=== PATIENT | male | born 1945 | race Two or more races ===

== ENCOUNTER → 2020-10-25 10:29 | Outpatient (BNVA) | payer OTHER, SELFPAY | PROVIDERS: PCP Internal Medicine; Visit Provider Internal Medicine | DX: I25.10 Atherosclerotic heart disease of native coronary artery without angina pectoris (principal); I10 Essential (primary) hypertension; E78.5 Hyperlipidemia, unspecified; Z95.1 Presence of aortocoronary bypass graft | CPT/HCPCS: 99212 ==

== ENCOUNTER → 2021-04-18 10:02 | Outpatient (BNVA) | payer OTHER, SELFPAY | PROVIDERS: PCP Internal Medicine; Referring Provider Internal Medicine; Visit Provider Internal Medicine | DX: I25.10 Atherosclerotic heart disease of native coronary artery without angina pectoris (principal); I10 Essential (primary) hypertension; E78.5 Hyperlipidemia, unspecified; Z95.1 Presence of aortocoronary bypass graft | CPT/HCPCS: 93005; 99212 ==

== ENCOUNTER 2021-04-20 10:27 | Outpatient (REF) | payer MEDICARE, SELFPAY ==
--- NOTE | ~2021-04-20 | XR_ITS ---
EXAMINATION: XR KNEE, RIGHT XR KNEE, LEFT CLINICAL INFORMATION: Pain in left knee COMPARISON: None TECHNIQUE: 4 views of the right knee and 4 views of the left knee FINDINGS: RIGHT: No acute visible fracture or dislocation. Mild multicompartment degenerative changes. Mild spurring of the tibial spines. Mild narrowing of the lateral patellofemoral compartment. Periarticular osteophytes of the inferior margin of the patella. Joint spaces are otherwise maintained. No large joint effusion. Soft tissues are unremarkable. Atherosclerotic calcifications noted. LEFT: No acute visible fracture or dislocation. Mild spurring of the tibial spines. Mild narrowing of the lateral patellofemoral compartment. Small articular osteophyte at the superior and inferior margin of the patella. Joint spaces and alignment are otherwise maintained. No large knee joint effusion. Soft tissues are unremarkable. XR/XR knee LT 3V IMPRESSION: 1. No acute visible fracture or dislocation. 2. Mild bilateral multicompartment degenerative changes.
--- NOTE | ~2021-04-20 | XR_ITS ---
EXAMINATION: XR ANKLE, LEFT CLINICAL INFORMATION: Pain in left ankle and joints COMPARISON: None TECHNIQUE: AP, lateral, and mortise views of the left ankle. FINDINGS: No acute visible fracture or dislocation. Status post orthopedic fixation of the ankle with distal fibular sideplate with screws, partially threaded screws through the medial malleolus and orthogonal screw towards the mid distal tibia. Surgical hardware is grossly intact. The ankle mortise is symmetric. Small plantar calcaneal heel spur. No large ankle joint effusion. Soft tissues are unremarkable. Atherosclerotic calcifications are noted. XR/XR ankle LT min 3V IMPRESSION: 1. No acute visible fracture or dislocation. 2. Status post remote orthopedic fixation of the ankle and distal fibula with intact orthopedic hardware.
--- NOTE | ~2021-04-20 | XR_ITS ---
EXAMINATION: XR KNEE, RIGHT XR KNEE, LEFT CLINICAL INFORMATION: Pain in left knee COMPARISON: None TECHNIQUE: 4 views of the right knee and 4 views of the left knee FINDINGS: RIGHT: No acute visible fracture or dislocation. Mild multicompartment degenerative changes. Mild spurring of the tibial spines. Mild narrowing of the lateral patellofemoral compartment. Periarticular osteophytes of the inferior margin of the patella. Joint spaces are otherwise maintained. No large joint effusion. Soft tissues are unremarkable. Atherosclerotic calcifications noted. LEFT: No acute visible fracture or dislocation. Mild spurring of the tibial spines. Mild narrowing of the lateral patellofemoral compartment. Small articular osteophyte at the superior and inferior margin of the patella. Joint spaces and alignment are otherwise maintained. No large knee joint effusion. Soft tissues are unremarkable. XR/XR knee RT 3V IMPRESSION: 1. No acute visible fracture or dislocation. 2. Mild bilateral multicompartment degenerative changes.
== END 2021-04-20 10:28 | disposition home or self-care (01) ==
LOC: HO.XRAY 10:27
PROVIDERS: PCP Internal Medicine; Visit Provider Internal Medicine
DX: M25.561 Pain in right knee (principal); M25.562 Pain in left knee; M25.572 Pain in left ankle and joints of left foot
CPT/HCPCS: 73562; 73610

== ENCOUNTER 2021-04-25 10:16 | Outpatient (REF) | payer MEDICARE, SELFPAY ==
[2021-04-25 11:45] LABS: Alanine Aminotransferase 31 U/L (0-40); Albumin Level 4.4 g/dL (3.5-5.0); Alkaline Phosphatase 90 U/L (39-117); Anion Gap 13 (12-20); Aspartate Amino Transferase 33 U/L (5-37); Bilirubin Total 0.6 mg/dL (0.0-1.0); Blood Urea Nitrogen 14 mg/dL (9-16); Calcium 9.6 mg/dL (8.4-10.2); Carbon Dioxide 27 mmol/L (22-29); Chloride 105 mmol/L (96-108); Cholesterol 133 mg/dL; Estimated Glomerular Filt Rate > 60; Glucose Fasting 99 mg/dL (60-99); HDL Cholesterol 35 mg/dL; LDL Cholesterol Calculated 79 mg/dl; Potassium 4.9 mmol/L (3.3-5.1); Sodium 140 mmol/L (135-145); Total Protein 7.8 g/dL (6.5-8.0); Triglycerides 99 mg/dL
== END 2021-04-25 10:17 | disposition home or self-care (01) ==
LOC: HO.LAB 10:16
PROVIDERS: PCP Internal Medicine; Visit Provider Internal Medicine
DX: I10 Essential (primary) hypertension (principal); E78.5 Hyperlipidemia, unspecified
CPT/HCPCS: 36415; 80053; 80061

== ENCOUNTER 2021-05-23 09:00 | Outpatient (REF) | payer MEDICARE, SELFPAY ==
--- NOTE | ~2021-05-23 | US_ITS ---
EXAMINATION: US RETROPERITONEAL LIMITED (AORTA) CLINICAL INFORMATION: Personal history of nicotine dependence. COMPARISON: None TECHNIQUE: Wylie-scale, color Doppler and spectral Doppler evaluation of the abdominal aorta. FINDINGS: There are atherosclerotic calcifications. The measurements of the aorta in maximum AP and transverse dimensions respectively are as follows: Proximal: 2.8 x 2.1 cm. Mid: 1.8 x 1.4 cm. Distal: 1.2 x 1.5 cm. PSV: 105 cm/s. The measurements of the common iliac arteries in maximum AP and TRV dimensions are as follows: Right: AP: 1.2 cm. TRV: 1.2 cm. Left: AP: 1.3 cm. TRV: 1.2 cm. US/US aorta IMPRESSION: No significant abdominal aortic dilatation. Atherosclerotic calcifications.
== END 2021-05-23 09:01 | disposition home or self-care (01) ==
LOC: HO.US 09:00
PROVIDERS: PCP Internal Medicine; Visit Provider Internal Medicine
DX: Z87.891 Personal history of nicotine dependence (principal)
CPT/HCPCS: 76775

== ENCOUNTER → 2021-08-21 10:08 | Outpatient (BNVA) | payer MEDICARE, SELFPAY | PROVIDERS: PCP Internal Medicine; Referring Provider Internal Medicine; Visit Provider Internal Medicine | DX: Z01.810 Encounter for preprocedural cardiovascular examination (principal); I25.10 Atherosclerotic heart disease of native coronary artery without angina pectoris; I10 Essential (primary) hypertension; E78.5 Hyperlipidemia, unspecified; Z95.1 Presence of aortocoronary bypass graft | CPT/HCPCS: 93005; 99212 ==

== ENCOUNTER 2021-08-28 10:46 | Outpatient (REF) | payer MEDICARE, SELFPAY ==
[2021-08-28 12:05] LABS: Hematocrit 48.6 % (42.0-52.0); Mean Corpuscular HGB Conc 32.9 g/dl (31.0-36.0); Mean Corpuscular Hemoglobin 30.4 pg (27.0-33.0); Mean Corpuscular Volume 92.4 fL (80.0-98.0); Mean Platelet Volume 11.4 fL (9.4-12.4); Platelet Count 227 X10*3/uL (160-400); Red Blood Count 5.26 X10*6/uL (4.60-5.80); Red Cell Distribution Width 13.2 % (11.0-16.0); White Blood Count 6.9 X10*3/uL (4.8-10.8)
[2021-08-28 12:12] LABS: INTERNATIONAL NORM RATIO 1.2 (0.9-1.1); Prothrombin Time 13.3 SEC (9.9-13.0)
[2021-08-28 12:30] LABS: Anion Gap 11 (12-20); Blood Urea Nitrogen 15 mg/dL (9-16); Calcium 9.9 mg/dL (8.4-10.2); Carbon Dioxide 29 mmol/L (22-29); Chloride 104 mmol/L (96-108); Estimated Glomerular Filt Rate > 60; Glucose Random 132 mg/dL (60-115); Potassium 4.3 mmol/L (3.3-5.1); Sodium 140 mmol/L (135-145)
== END 2021-08-28 10:47 | disposition home or self-care (01) ==
LOC: HO.LAB 10:46
PROVIDERS: PCP Internal Medicine; Visit Provider Physician Assistant
DX: Z01.810 Encounter for preprocedural cardiovascular examination (principal)
CPT/HCPCS: 36415; 80048; 85027; 85610

== ENCOUNTER 2021-11-03 10:16 | Outpatient (REF) | payer OTHER, SELFPAY ==
[2021-11-03 12:25] LABS: Alanine Aminotransferase 31 U/L (0-40); Albumin Level 4.4 g/dL (3.5-5.0); Alkaline Phosphatase 104 U/L (39-117); Anion Gap 12 (12-20); Aspartate Amino Transferase 26 U/L (5-37); Bilirubin Total 0.7 mg/dL (0.0-1.0); Blood Urea Nitrogen 16 mg/dL (9-16); Calcium 9.4 mg/dL (8.4-10.2); Carbon Dioxide 29 mmol/L (22-29); Chloride 104 mmol/L (96-108); Cholesterol 152 mg/dL; Estimated Glomerular Filt Rate > 60; Glucose Fasting 94 mg/dL (60-99); HDL Cholesterol 39 mg/dL; LDL Cholesterol Calculated 88 mg/dl; Potassium 4.7 mmol/L (3.3-5.1); Sodium 140 mmol/L (135-145); Total Protein 7.9 g/dL (6.5-8.0); Triglycerides 126 mg/dL
[2021-11-03 12:46] LABS: Vitamin D 25-OH Total 25.9 ng/mL (>30)
== END 2021-11-03 10:17 | disposition home or self-care (01) ==
LOC: HO.LAB 10:16
PROVIDERS: PCP Internal Medicine; Visit Provider Internal Medicine
DX: I10 Essential (primary) hypertension (principal); E78.5 Hyperlipidemia, unspecified; E55.9 Vitamin D deficiency, unspecified
CPT/HCPCS: 36415; 80053; 80061; 82306

== ENCOUNTER 2022-01-31 14:31 | Outpatient (REF) | payer OTHER, SELFPAY ==
--- NOTE | ~2022-01-31 | US_ITS ---
EXAMINATION: US SCROTUM CLINICAL INFORMATION: Left lower quadrant/inguinal pain. Described as popping sensation last week. COMPARISON: None TECHNIQUE: A sonogram of the scrotum was performed assessing wetzel-scale appearance and color Doppler flow. Spectral Doppler analysis of the arterial and venous flow were performed in the testes bilaterally. FINDINGS: RIGHT: Right testicle measures 3.9 x 2.5 x 3.2 cm, volume 16.3 mL. No focal testicular parenchymal lesions are visualized. Spectral Doppler analysis of the arterial and venous flow is normal in the right testis. Right epididymal head is normal in size. Small right hydrocele. No right varicocele. Right epididymal Doppler flow is normal. LEFT: Left testicle measures 4.1 x 2.3 x 3.0 cm, volume 14.8 mL. No focal testicular parenchymal lesions are visualized. Spectral Doppler analysis of the arterial and venous flow is normal in the left testis. Left epididymal head is normal in size. Small left hydrocele. No left varicocele. Left epididymal Doppler flow is normal. No significant soft tissue abnormality in the inguinal regions bilaterally. No evidence for hernia. US/US scrotum IMPRESSION: 1. No significant intratesticular abnormality bilaterally. 2. Small bilateral hydroceles. 3. No evidence for inguinal hernia or other soft tissue abnormality.
== END 2022-01-31 14:32 | disposition home or self-care (01) ==
LOC: HO.US 14:31
PROVIDERS: Visit Provider Nurse Practitioner Family
DX: R10.32 Left lower quadrant pain (principal)
CPT/HCPCS: 76870

== ENCOUNTER → 2022-04-23 10:20 | Outpatient (BNVA) | payer OTHER, SELFPAY | PROVIDERS: PCP Internal Medicine; Referring Provider Internal Medicine; Visit Provider Internal Medicine | DX: I25.10 Atherosclerotic heart disease of native coronary artery without angina pectoris (principal); I10 Essential (primary) hypertension; E78.5 Hyperlipidemia, unspecified | CPT/HCPCS: 93005; 99212 ==

== ENCOUNTER → 2022-06-19 11:08 | Outpatient (BNVA) | payer OTHER, SELFPAY | PROVIDERS: PCP Internal Medicine; Visit Provider Urology | DX: R10.32 Left lower quadrant pain (principal) | CPT/HCPCS: 99202 ==

== ENCOUNTER 2022-08-03 08:33 | Outpatient (REF) | payer OTHER, SELFPAY ==
[2022-08-03 11:36] LABS: Alanine Aminotransferase 28 U/L (0-40); Albumin Level 4.3 g/dL (3.5-5.0); Alkaline Phosphatase 101 U/L (39-117); Anion Gap 14 (12-20); Aspartate Amino Transferase 31 U/L (5-37); Bilirubin Total 0.8 mg/dL (0.0-1.0); Blood Urea Nitrogen 17 mg/dL (9-16); Calcium 9.5 mg/dL (8.4-10.2); Carbon Dioxide 27 mmol/L (22-29); Chloride 105 mmol/L (96-108); Cholesterol 151 mg/dL; Estimated Glomerular Filt Rate > 60; Glucose Fasting 98 mg/dL (60-99); HDL Cholesterol 37 mg/dL; LDL Cholesterol Calculated 89 mg/dl; Potassium 4.4 mmol/L (3.3-5.1); Sodium 142 mmol/L (135-145); Total Protein 7.7 g/dL (6.5-8.0); Triglycerides 129 mg/dL
[2022-08-03 11:37] LABS: Vitamin D 25-OH Total 24.5 ng/mL (>30)
== END 2022-08-03 08:34 | disposition home or self-care (01) ==
LOC: HO.LAB 08:33
PROVIDERS: PCP Internal Medicine; Visit Provider Nurse Practitioner Family
DX: I25.10 Atherosclerotic heart disease of native coronary artery without angina pectoris (principal); E55.9 Vitamin D deficiency, unspecified; I10 Essential (primary) hypertension
CPT/HCPCS: 36415; 80053; 80061; 82306

== ENCOUNTER 2022-08-29 15:35 | Outpatient (REF) | payer OTHER, SELFPAY ==
--- NOTE | ~2022-08-29 | XR_ITS ---
EXAMINATION: X-RAY BILATERAL SHOULDERS CLINICAL INFORMATION: Pain COMPARISON: None TECHNIQUE: Right shoulder 3 views. Left shoulder 3 views. FINDINGS: Right shoulder: No acute fracture or dislocation. Mild acromioclavicular arthritis. Mild inferior glenoid spurring. Glenohumeral joint space is maintained. Mild superior positioning of the humeral head with respect to glenoid. No abnormal soft tissue calcification. Right clavicle is intact. Intact scapula. Left shoulder: No acute fracture or dislocation. Mild acromioclavicular arthritis. Mild glenohumeral joint arthritis. Mild superior positioning of the humeral head with respect to glenoid. No abnormal soft tissue calcification. Intact left clavicle. Intact scapula. XR/XR shoulder LT min 2V IMPRESSION: Right shoulder: Mild acromioclavicular and glenohumeral joint arthritis. Mild superior positioning of the humerus, technical versus related to rotator cuff pathology Left shoulder: Mild acromioclavicular and glenohumeral joint arthritis. Mild superior positioning of the humerus, technical versus related to rotator cuff pathology.
--- NOTE | ~2022-08-29 | XR_ITS ---
EXAMINATION: X-RAY BILATERAL SHOULDERS CLINICAL INFORMATION: Pain COMPARISON: None TECHNIQUE: Right shoulder 3 views. Left shoulder 3 views. FINDINGS: Right shoulder: No acute fracture or dislocation. Mild acromioclavicular arthritis. Mild inferior glenoid spurring. Glenohumeral joint space is maintained. Mild superior positioning of the humeral head with respect to glenoid. No abnormal soft tissue calcification. Right clavicle is intact. Intact scapula. Left shoulder: No acute fracture or dislocation. Mild acromioclavicular arthritis. Mild glenohumeral joint arthritis. Mild superior positioning of the humeral head with respect to glenoid. No abnormal soft tissue calcification. Intact left clavicle. Intact scapula. XR/XR shoulder RT min 2V IMPRESSION: Right shoulder: Mild acromioclavicular and glenohumeral joint arthritis. Mild superior positioning of the humerus, technical versus related to rotator cuff pathology Left shoulder: Mild acromioclavicular and glenohumeral joint arthritis. Mild superior positioning of the humerus, technical versus related to rotator cuff pathology.
--- NOTE | ~2022-08-29 | US_ITS ---
EXAMINATION: US SOFT TISSUE OF THE NECK CLINICAL INFORMATION: Generalized enlarged lymph nodes. COMPARISON: None TECHNIQUE: Linear transducer grayscale and color Doppler examination of the left submandibular region. FINDINGS: Left submandibular gland measures 2.1 x 3.4 x 2.2 cm. Within the left submandibular gland is a 1.7 x 1.8 x 0.9 cm irregular appearing hypoechoic structure. Few additional nonpathologically enlarged left level 1B nodes are also seen measuring up to 0.9 x 0.6 x 0.5 cm. US/US soft tiss head and/or neck IMPRESSION: A 1.8 cm irregular appearing hypoechoic structure within the left submandibular gland, unclear if this could reflect an abnormal lymph node or primary salivary gland mass. Recommend further characterization with contrast-enhanced MR face/neck. The report will be called to the ordering clinician by a [facility].
--- NOTE | ~2022-08-29 | XR_ITS ---
EXAMINATION: X-RAY BILATERAL ANKLES CLINICAL INFORMATION: Pain COMPARISON: X-ray left ankle 04/20/2021 TECHNIQUE: Right ankle 3 views. Left ankle 3 views. FINDINGS: Left ankle: Interval removal of the orthopedic hardware in the distal femur, with residual lucent hardware tracks visualize. There is a screw positioned in the distal tibial plafond and, unchanged from previous. Screw is intact without thad-hardware lucency. Interval of the previously noted 2 screws in the medial malleolus. No visible acute fracture or dislocation. Question mild arthritis in the medial aspect of the tibiotalar joint. Dorsal talar neck spurring. Moderate plantar calcaneal spurring. Fifth metatarsal base, anterior calcaneal process is intact. Right ankle: There is a metallic device positioned at the level of the distal tibia/fibula. In the nonobscured bones, no visible acute fracture or dislocation. Mild narrowing of the lateral clear space on the ankle mortise view, could be related to positioning/technique. Small plantar and posterior calcaneal spurring. XR/XR ankle LT 2V IMPRESSION: Left ankle: Postoperative changes as above. No evidence of acute fracture. Question mild tibiotalar arthritis. Degenerative changes as above. Right ankle: No evidence of acute fracture. Apparent mild ankle mortise asymmetry, could be related to positioning/technique versus other causes..
--- NOTE | ~2022-08-29 | XR_ITS ---
EXAMINATION: X-RAY BILATERAL ANKLES CLINICAL INFORMATION: Pain COMPARISON: X-ray left ankle 04/20/2021 TECHNIQUE: Right ankle 3 views. Left ankle 3 views. FINDINGS: Left ankle: Interval removal of the orthopedic hardware in the distal femur, with residual lucent hardware tracks visualize. There is a screw positioned in the distal tibial plafond and, unchanged from previous. Screw is intact without thad-hardware lucency. Interval of the previously noted 2 screws in the medial malleolus. No visible acute fracture or dislocation. Question mild arthritis in the medial aspect of the tibiotalar joint. Dorsal talar neck spurring. Moderate plantar calcaneal spurring. Fifth metatarsal base, anterior calcaneal process is intact. Right ankle: There is a metallic device positioned at the level of the distal tibia/fibula. In the nonobscured bones, no visible acute fracture or dislocation. Mild narrowing of the lateral clear space on the ankle mortise view, could be related to positioning/technique. Small plantar and posterior calcaneal spurring. XR/XR ankle RT 2V IMPRESSION: Left ankle: Postoperative changes as above. No evidence of acute fracture. Question mild tibiotalar arthritis. Degenerative changes as above. Right ankle: No evidence of acute fracture. Apparent mild ankle mortise asymmetry, could be related to positioning/technique versus other causes..
--- NOTE | ~2022-08-29 | XR_ITS ---
EXAMINATION: X-RAY BILATERAL KNEES CLINICAL INFORMATION: Pain COMPARISON: X-ray 04/20/2021 TECHNIQUE: Right knee 2 views. Left knee 2 views. FINDINGS: Left knee: Anatomic alignment. No visible acute fracture or dislocation. Mild tibial spine spurring. Small patellar marginal osteophytes. Joint spaces are relatively maintained. No significant effusion. No abnormal soft tissue calcification. Right knee: Anatomic alignment. No visible acute fracture or dislocation. Tibial spine spurring. Tiny patellar marginal spurring. Joint spaces are relatively maintained. Small suprapatellar joint fluid. No abnormal soft tissue calcification. XR/XR knee LT 2V IMPRESSION: Left knee: Mild degenerative spurring as above. No acute findings seen. Right knee: Mild degenerative spurring as above. No acute findings seen.
--- NOTE | ~2022-08-29 | XR_ITS ---
EXAMINATION: X-RAY BILATERAL KNEES CLINICAL INFORMATION: Pain COMPARISON: X-ray 04/20/2021 TECHNIQUE: Right knee 2 views. Left knee 2 views. FINDINGS: Left knee: Anatomic alignment. No visible acute fracture or dislocation. Mild tibial spine spurring. Small patellar marginal osteophytes. Joint spaces are relatively maintained. No significant effusion. No abnormal soft tissue calcification. Right knee: Anatomic alignment. No visible acute fracture or dislocation. Tibial spine spurring. Tiny patellar marginal spurring. Joint spaces are relatively maintained. Small suprapatellar joint fluid. No abnormal soft tissue calcification. XR/XR knee RT 2V IMPRESSION: Left knee: Mild degenerative spurring as above. No acute findings seen. Right knee: Mild degenerative spurring as above. No acute findings seen.
== END 2022-08-29 15:36 | disposition home or self-care (01) ==
LOC: HO.US 15:35
PROVIDERS: Visit Provider Internal Medicine
DX: R59.1 Generalized enlarged lymph nodes (principal); M25.511 Pain in right shoulder; M25.512 Pain in left shoulder; M25.561 Pain in right knee; M25.562 Pain in left knee; M25.571 Pain in right ankle and joints of right foot; M25.572 Pain in left ankle and joints of left foot
CPT/HCPCS: 73030; 73560; 73600; 76536

== ENCOUNTER 2022-09-26 11:45 | Outpatient (REF) | payer OTHER, SELFPAY ==
--- NOTE | ~2022-09-26 | XR_ITS ---
EXAMINATION: XR CHEST CLINICAL INFORMATION: Shortness of breath. COMPARISON: 01/20/2020 chest radiograph. TECHNIQUE: 2 views of the chest were obtained. FINDINGS: No significant abnormality is noted involving the heart, lungs, mediastinum, bony thorax or soft tissues. Multilevel sternotomy wires are intact. XR/XR chest 2V IMPRESSION: No acute cardiopulmonary process.
[2022-09-26 15:26] LABS: Influenza A PCR NEGATIVE (Negative); Influenza B PCR NEGATIVE (Negative); Resp Syncy Virus RNA Qual PCR NEGATIVE (Negative); SARS COV2 PCR INHOUSE NEGATIVE (Negative)
== END 2022-09-26 11:46 | disposition home or self-care (01) ==
LOC: HO.HMGCX 11:45
PROVIDERS: PCP Internal Medicine; Visit Provider Internal Medicine
DX: Z20.822 Contact with and (suspected) exposure to COVID-19 (principal); R06.2 Wheezing; R09.89 Other specified symptoms and signs involving the circulatory and respiratory systems; R06.02 Shortness of breath
CPT/HCPCS: 0241U; 71046

== ENCOUNTER → 2022-10-08 09:25 | Outpatient (BNVA) | payer OTHER, SELFPAY | PROVIDERS: PCP Internal Medicine; Referring Provider Internal Medicine; Visit Provider Internal Medicine | DX: I25.10 Atherosclerotic heart disease of native coronary artery without angina pectoris (principal); I10 Essential (primary) hypertension; E78.5 Hyperlipidemia, unspecified | CPT/HCPCS: 99212 ==

== ENCOUNTER 2022-11-27 10:00 | Outpatient (REF) | payer OTHER, SELFPAY ==
--- NOTE | ~2022-11-27 | XR_ITS ---
EXAMINATION: XR CHEST CLINICAL INFORMATION: Wheezing COMPARISON: Chest 09/26/2022 TECHNIQUE: 2 views of the chest were obtained. FINDINGS: The lungs are well-expanded and clear. The heart size and pulmonary vascularity is normal. There are median sternotomy sutures and mediastinal halima from previous CABG. No gross bony abnormality XR/XR chest 2V IMPRESSION: Unremarkable chest examination.
== END 2022-11-27 10:01 | disposition home or self-care (01) ==
LOC: HO.XRAY 10:00
PROVIDERS: PCP Internal Medicine; Visit Provider Internal Medicine
DX: R06.02 Shortness of breath (principal); R06.2 Wheezing
CPT/HCPCS: 71046; 99202

== ENCOUNTER 2023-01-16 10:02 | Outpatient (REF) | payer OTHER, SELFPAY ==
--- NOTE | 2023-01-16 11:04 | PFT_ITS ---
INDICATION: Dyspnea. SPIROMETRY: FEV1 to FVC of 86% with an FEV1 of 2.08 L, which is 102% predicted. The FVC is 2.42 L, which is 86% predicted. There was return response to bronchodilator is noted. Maximum voluntary ventilation 99% predicted. LUNG VOLUMES: Total lung capacity 63% predicted with an expiratory residual volume of 59% predicted. DIFFUSION CAPACITY: DLCO of 117% predicted. COMPARISON: None. INTERPRETATION: No obstructive ventilatory defects. No significant response to bronchodilator is noted. No maximum voluntary ventilation. However, the patient does have a restrictive ventilatory defect consisted of moderate restrictive lung disease. Need to consider underlying parenchymal lung conditions and/or neuromuscular conditions. The patient does have a normal diffusion capacity. Although with the smoking history could be due to exogenous carbon monoxide exposure. Clinical correlation warranted, noted. MD KONG Ang/MODL / [id number]
== END 2023-01-16 10:03 | disposition home or self-care (01) ==
LOC: HO.RESP 10:02
PROVIDERS: PCP Internal Medicine; Visit Provider Internal Medicine
DX: R06.02 Shortness of breath (principal); R06.2 Wheezing; Z87.891 Personal history of nicotine dependence
CPT/HCPCS: 94010; 94727; 94729; 99212

== ENCOUNTER 2023-02-12 09:07 | Outpatient (AMB) | payer OTHER, SELFPAY ==
--- NOTE | 2023-02-12 09:12 | MHC.PC.OV ---
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 Required: No Accompanied by: Grand Child Allergies aspirin Allergy (Mild, Verified 02/12/23 09:23) Rash Penicillins Adverse Reaction (Intermediate, Verified 02/12/23 09:23) rash and redness Medication List - Last Reconciled 02/12/23 by Tiffany Jesus MD acetaminophen 500 mg PO Q6H PRN albuterol sulfate 90 mcg/actuation 2 puffs inhalation Q4-6H PRN 30 days blood pressure test kit-large As directed cholecalciferol (vitamin D3) 25 mcg PO DAILY clopidogrel 75 mg PO DAILY 90 days meclizine 12.5 mg PO BID metoprolol tartrate 50 mg PO BID nitroglycerin 0.4 mg sublingual Q5M rosuvastatin (Crestor) 40 mg PO DAILY Tobacco use date assessed: 08/15/22 Fall risk assessment: No Falls in past year Last assessed Fall Risk: 02/12/23 Dental Screening Dental Screen Date: 02/12/23 Did you have a dental visit in the last 12 months?: No Did you have a dental problem in the last 6 months where you did not have access to dental care?: No Was dental information given to patient?: Patient has dentist HPI HPI Comments History of Present Illness Details This is a 77-year-old male that comes for his physical exam. Blood pressure elevated and will be recheck in 3 weeks by nurse navigator. Had a fit test October 2022 which was negative. Walks with a walker for gait stability. Accompanied by granddaughter. [facility]LY [facility], [facility] Medical History (Updated 02/12/23 @ 10:00 by Tiffany Jesus MD) Asthma Atherosclerotic cardiovascular disease Essential hypertension Former smoker Hypovitaminosis D Left ankle pain Left knee pain Other and unspecified hyperlipidemia Right knee pain Wheezing Surgical History History of ankle surgery History of open reduction and internal fixation (ORIF) procedure History of quadruple bypass Status post aorto-coronary artery bypass graft Family History Father CVD (cardiovascular disease) Stroke Mother CVD (cardiovascular disease) Hypertension Hyperlipidemia Social History Housing: Apartment Alcohol intake: never Patient Tobacco Use Status: Former Tobacco user e-Cigarette/Vaping Use: Never Used Second Hand Smoke Exposure: No service: No Current occupational status: disabled Cognitive needs: Yes Hearing needs: No Vision needs: No Questionnaire Thrive Questionnaire Date Thrive assessed: 08/15/22 LANRE-7 AMB Questionnaire LANRE-7 Date LANRE - 7 assessed: 08/15/22 Source: Developed by Drs. Narendra Little, Jacquelin Castle, Nick Pacheco and colleagues, with an educational merly from [employer]. Review of Systems Const All systems reviewed & are unremarkable except as noted in HPI and below Eyes Reports no additional complaints, Denies change in vision and Denies other visual disturbances Card Denies chest pain at rest, Denies chest pain with activity, Denies edema, Denies irregular heart rhythm, Denies claudication, Denies dyspnea, Denies dyspnea on exertion, Denies orthopnea, Denies paroxysmal nocturnal dyspnea and Denies slow heart rate Resp Denies cough, Denies dyspnea and Denies dyspnea on exertion GI Denies abdominal pain, Denies change in bowel habits, Denies excessive flatus, Denies nausea and Denies vomiting Denies urinary hesitancy, Denies urinary incontinence and Denies urinary urgency Musc Denies abnormal gait, Denies atrophy, Denies deformity and Denies limited range of motion Skin/Breast Denies bleeding lesions, Denies changing lesions and Denies rash Neuro Denies abnormal gait and Denies lack of coordination Physical exam (Primary Care) Vital Signs: Last Vital Signs BP 156/82 H 02/12/23 09:13 BMI result Body Mass Index 28.0 Tobacco/Smoking Status: Tobacco use Status Tobacco use date assessed 08/15/22 02/12/23 09:18 Patient Tobacco Use Status Former Tobacco user 02/12/23 09:18 Tobacco use type 10/08/22 10:10 e-Cigarette/Vaping Use Never Used 02/12/23 09:18 Thrive Assessment: Date of Thrive Assessment Date Thrive assessed 08/15/22 02/12/23 09:18 Const Orientation/consciousness: patient oriented x3 Limitations: ambulation with walker Eyes General: appearance normal, both eyes and all related structures Eyelids: Yes eyelids normal Conjunctivae: conjunctivae normal Neck Neck: Yes normal visual inspection and Yes supple Resp Effort & Inspection: normal respiratory effort Auscultation: clear to auscultation bilaterally Cardio Jugular venous distension: no JVD Rate: regular rate Rhythm: regular rhythm Heart sounds: S1 normal heart sound present and S2 normal heart sound present GI Inspection: Yes normal to inspection Palpation (GI): Soft to palpation and nontender Auscultation: normal bowel sounds Skin General skin exam: no rashes or lesions noted Neuro General: patient oriented x3 and no focal motor deficits Extrem Other: right electronic bracelet General: Yes full ROM Psych Appearance: grossly normal Assessment and Plan Assessment & Plan (1) Physical exam: Code(s): Z00.00 - Encounter for general adult medical examination without abnormal findings Plan: Repeat in a year Orders: Orders Lipid Panel 1 Week E78.5 - Hyperlipidemia, unspecified Coding Level of Care Code Est Pt Prev Care >65y(44343) Diagnoses Physical exam Z00.00 Time Spent (min) 33
[2023-02-12 09:13] VITALS: BP 156/82; BMI 28.0
[2023-02-12 09:59] VITALS: BP 150/90
== END 2023-02-12 09:33 | disposition home or self-care (01) ==
PROVIDERS: Visit Provider Internal Medicine
DX: Z00.00 Encounter for general adult medical examination without abnormal findings (principal)
CPT/HCPCS: 99397

== ENCOUNTER 2023-05-09 09:31 | Outpatient (AMB) | payer OTHER, SELFPAY ==
[2023-05-09 09:44] VITALS: BP 120/70; PULSE 60; O2SAT 96; BMI 28.0
--- NOTE | 2023-05-09 09:44 | MHC.OFFVIS ---
Intake Vital Signs 05/09/23 09:44 Height 5 ft 2 in Weight 153 lb 3.54 oz BMI 28.0 BP 120/70 Blood Pressure Location Lt brachial Position Sitting Pulse 60 Pulse Source Pulse Oximeter Pulse Oximetry (%) 96 Oxygen Delivery Method Room Air Intake Visit Reasons: COPD Intake Note: pt is here for follow up and state he feels fine, sometimes the weather affects him. 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: No Allergies aspirin Allergy (Mild, Verified 05/09/23 09:53) Rash Penicillins Adverse Reaction (Intermediate, Verified 05/09/23 09:53) rash and redness Medication List - Last Reconciled 05/09/23 by Rossana Peterson MD acetaminophen 500 mg PO Q6H PRN albuterol sulfate 90 mcg/actuation 2 puffs inhalation Q4-6H PRN 30 days blood pressure test kit-large As directed cholecalciferol (vitamin D3) 25 mcg PO DAILY clopidogrel 75 mg PO DAILY 90 days meclizine 12.5 mg PO BID metoprolol tartrate 50 mg PO BID nitroglycerin 0.4 mg sublingual Q5M rosuvastatin (Crestor) 40 mg PO DAILY Do you need a note to return to daycare/school/sports/work: No HPI COPD HPI Details 77 years old very pleasant gentleman walks with a walker, He comes after 4 months for follow-up. He has just very mild bronchial asthma/reactive airways and was prescribed to keep albuterol HFA on hand. Since his last visit he has not used albuterol a tall. He has had no acute respiratory infection. He is up to date with vaccinations. [facility] Medical History Asthma Wheezing Hypovitaminosis D Right knee pain Left knee pain Left ankle pain Former smoker Other and unspecified hyperlipidemia Essential hypertension Atherosclerotic cardiovascular disease Surgical History History of ankle surgery Status post aorto-coronary artery bypass graft History of quadruple bypass History of open reduction and internal fixation (ORIF) procedure Family History Father CVD (cardiovascular disease) Stroke Mother CVD (cardiovascular disease) Hypertension Hyperlipidemia Social History Housing: Apartment Alcohol intake: never Patient Tobacco Use Status: Former Tobacco user e-Cigarette/Vaping Use: Never Used Second Hand Smoke Exposure: No service: No Current occupational status: disabled Cognitive needs: Yes Hearing needs: No Vision needs: No Review of Systems Const All systems reviewed & are unremarkable except as noted in HPI and below Eyes Reports no additional complaints ENT Reports no additional complaints, Reports vertigo and Reports disequilibrium Card Denies chest pain, Denies irregular heart rhythm, Denies leg edema and Reports dyspnea on exertion (MILD, HE DOES NOT WALK FAST.) Resp Reports as per HPI, Reports dyspnea on exertion (MILD, HE DOES NOT WALK FAST.) and Reports wheezing (SPECIALLY RATTLING SOUNDS AT NIGHT) GI Reports no additional complaints Reports no additional complaints Musc Reports arthralgias (LEFT ANKLE) Skin/Breast Reports system reviewed and no additional complaints, except as documented Neuro Reports vertigo and Reports disequilibrium Psych Reports no additional complaints Endo Reports no additional complaints Juve/Lymph Reports no additional complaints Aller/Immun Reports wheezing (SPECIALLY RATTLING SOUNDS AT NIGHT) Physical Exam Const Other: UNSTEADY ON HIS FEET, USES WALKER TO WALK AROUND General: comfortable, no acute distress, alert and awake Orientation/consciousness: patient oriented x3 HEENT Head: Yes normal to inspection General nose exam: No nasal polyps present and No nasal discharge present Face and sinus: Yes sinuses nontender Mouth: oropharynx normal Throat: Yes posterior oropharynx normal Eyes General: appearance normal, both eyes and all related structures Neck Neck: Yes normal visual inspection, Yes no lymphadenopathy, Yes trachea midline and Yes no JVD Thyroid: Thyroid normal Chest Chest palpation & inspection: normal inspection of the chest (MID STERNAL SCAR FROM PREVIOUS CABG SURGERY), normal palpation of entire chest wall and no tenderness Resp Other: PERCUSSION NOTE IS RESONANT, BREATH SOUNDS ARE DISTANT WITH PROLONGED EXPIRATORY PHASE NO WHEEZES RHONCHI OR CREPITATIONS ARE HEARD. Cardio Palpation: normal PMI Rate: regular rate Rhythm: regular rhythm Heart sounds: no gallops and no murmurs GI Palpation (GI): Soft to palpation, nontender, No hepatosplenomegaly present and no masses Auscultation: normal bowel sounds Back/Spine/Pelvis Thoracic/Lumbar Spine: thoracic and lumbar spine normal to inspection and thoraco-lumbar ROM limited Skin General skin exam: no rashes or lesions noted Neuro General: patient oriented x3, No gait normal (UNSTEADY ON HIS FEET, USES WALKER) and no focal motor deficits Cranial nerves: Yes CN's II-XII intact bilaterally Extrem General: Yes normal to inspection, Yes no clubbing, cyanosis or edema and Yes no calf tenderness Psych Appearance: grossly normal and well kempt Speech and movement: Normal speech and movement present Assessment & Plan Assessment & Plan (1) Asthma: Comment: VERY MILD, INTERMITTENT BRONCHIAL ASTHMA. IT HAS REMAINED QUIET. TX : USE ALBUTEROL HFA 2 PUFFS Q 4-6 HOURS ONLY P.R.N. HE DOES NOT NEED TO SEE ME ON A REGULAR BASIS, CONTINUE TO FOLLOW-UP WITH PRIMARY CARE PHYSICIAN, AND I WILL BE GLAD TO SEE YOU, IF RESPIRATORY SYMPTOMS GET ANY WORSE. Code(s): J45.909 - Unspecified asthma, uncomplicated (2) Wheezing: Comment: ONLY OCCASIONAL PROBABLY NONSPECIFIC, AND MAY BE DUE TO ME MILD DEGREE OF ASTHMA. Code(s): R06.2 - Wheezing (3) Shortness of breath: Comment: DUE TO MULTIPLE FACTORS INCLUDING OBESITY, MILD BRONCHIAL ASTHMA, CARDIAC DISEASE. HE IS NOT VERY SYMPTOMATIC AT THIS TIME. ENCOURAGED TO KEEP ON DOING DEEP BREATHING EXERCISES . Code(s): R06.02 - Shortness of breath Coding Level of Care Code Est Pt Level 3 (17077) Diagnoses Asthma J45.909 Wheezing R06.2 Shortness of breath R06.02
== END 2023-05-09 10:02 | disposition home or self-care (01) ==
PROVIDERS: PCP Internal Medicine; Visit Provider Internal Medicine
DX: J45.909 Unspecified asthma, uncomplicated (principal); R06.02 Shortness of breath
CPT/HCPCS: 99213

== ENCOUNTER → 2023-05-09 09:31 | Outpatient (BNVA) | payer OTHER, SELFPAY | PROVIDERS: PCP Internal Medicine; Visit Provider Internal Medicine | DX: J45.909 Unspecified asthma, uncomplicated (principal); R06.02 Shortness of breath | CPT/HCPCS: 99212 ==

== ENCOUNTER 2023-06-15 09:39 | Outpatient (REF) | payer OTHER, SELFPAY ==
[2023-06-15 10:37] LABS: Alanine Aminotransferase 30 U/L (0-40); Albumin Level 4.4 g/dL (3.5-5.0); Alkaline Phosphatase 89 U/L (39-117); Anion Gap 12 (12-20); Aspartate Amino Transferase 32 U/L (5-37); Bilirubin Total 0.6 mg/dL (0.0-1.0); Blood Urea Nitrogen 13 mg/dL (9-16); Calcium 9.5 mg/dL (8.4-10.2); Carbon Dioxide 28 mmol/L (22-29); Chloride 105 mmol/L (96-108); Cholesterol 124 mg/dL (<200); Estimated Glomerular Filt Rate > 60; Glucose Fasting 104 mg/dL (60-99); HDL Cholesterol 37 mg/dL (>40); LDL Cholesterol Calculated 64 mg/dL (<100); Sodium 141 mmol/L (135-145); Total Protein 8.2 g/dL (6.5-8.0); Triglycerides 116 mg/dL (<150)
== END 2023-06-15 09:40 | disposition home or self-care (01) ==
LOC: HO.LAB 09:39
PROVIDERS: PCP Internal Medicine; Visit Provider Internal Medicine
DX: E78.5 Hyperlipidemia, unspecified (principal); M25.561 Pain in right knee; E55.9 Vitamin D deficiency, unspecified
CPT/HCPCS: 36415; 80053; 80061; 82306

== ENCOUNTER 2023-09-12 12:55 | Outpatient (AMB) | payer OTHER, SELFPAY ==
[2023-09-12 13:03] VITALS: BP 140/80; BMI 28.3
--- NOTE | 2023-09-12 13:03 | MHC.PC.OV ---
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 Required: No Accompanied by: daughter Allergies aspirin Allergy (Mild, Verified 09/12/23 13:20) Rash meclizine Adverse Reaction (Severe, Verified 09/12/23 13:20) blurry vision Penicillins Adverse Reaction (Intermediate, Verified 09/12/23 13:20) rash and redness Medication List - Last Reconciled 09/12/23 by Tiffany Jesus MD acetaminophen 500 mg PO Q6H PRN albuterol sulfate 90 mcg/actuation 2 puffs inhalation Q4-6H PRN 30 days blood pressure test kit-large As directed cholecalciferol (vitamin D3) 25 mcg PO DAILY clopidogrel 75 mg PO DAILY 90 days metoprolol tartrate 50 mg PO BID nitroglycerin 0.4 mg sublingual Q5M rosuvastatin (Crestor) 40 mg PO DAILY Tobacco use date assessed: 09/12/23 Fall risk assessment: No Falls in past year Last assessed Fall Risk: 09/12/23 Dental Screening Dental Screen Date: 09/12/23 Did you have a dental visit in the last 12 months?: No Did you have a dental problem in the last 6 months where you did not have access to dental care?: No Was dental information given to patient?: Patient declined HPI HPI Comments History of Present Illness Details This is a 77-year-old male with hypertension, dyslipidemia, asthma and low vitamin-D that comes today accompanied by daughter for follow-up on his conditions. Blood pressure stable. Cholesterol well control. He use rescue inhaler 1 to 2 times a month. On vitamin-D supplements for his low vitamin-D. Walks with a walker for gait stability. Complains of difficulty falling asleep but declines medication. Sleep hygiene education was given. [facility] Medical History Asthma Wheezing Hypovitaminosis D Right knee pain Left knee pain Left ankle pain Former smoker Other and unspecified hyperlipidemia Essential hypertension Atherosclerotic cardiovascular disease Surgical History History of ankle surgery Status post aorto-coronary artery bypass graft History of quadruple bypass History of open reduction and internal fixation (ORIF) procedure Family History Father CVD (cardiovascular disease) Stroke Mother CVD (cardiovascular disease) Hypertension Hyperlipidemia Social History Housing: Apartment Alcohol intake: never Patient Tobacco Use Status: Former Tobacco user e-Cigarette/Vaping Use: Never Used Second Hand Smoke Exposure: No service: No Current occupational status: disabled Cognitive needs: Yes Hearing needs: No Vision needs: No Questionnaire PHQ-9 Over the last 2 weeks, how often have you been bothered by any of the following problems? 1. Little interest or pleasure in doing things: not at all 2. Feeling down, depressed, or hopeless: several days 3. Trouble falling or staying asleep, or sleeping too much: nearly every day 4. Feeling tired or having little energy: not at all 5. Poor appetite or overeating: not at all 6. Feeling bad about yourself - or that you are a failure or have let yourself or your family down: not at all 7. Trouble concentrating on things, such as reading the newspaper or watching television: several days 8. Moving or speaking so slowly that other people could have noticed. Or the opposite - being so fidgety or restless that you have been moving around a lot more than usual: not at all 9. Thoughts that you would be better off or of hurting yourself in some way: not at all Total score: 5 Depression Screening Interpretation: Positive Depression Screening Follow-up: Existing condition Depression Screening Done: Yes 56571 - PHQ-9 Billing: Yes Source: Developed by Drs. Narendra Little, Jacquelin Castle, Nick Pacheco and colleagues, with an educational merly from [employer]. Thrive Questionnaire Date Thrive assessed: 09/12/23 I am a: Patient What is your living situation today?: I have a steady place to live Within the past 12 months, did the food you bought not last and you didn't have the money to get more?: Never true Within the past 12 months, did you worry whether your food would run out before you got money to buy more?: Never true Do you have trouble paying for medicines?: No Do you have trouble getting transportation to medical appointments?: No Do you have trouble paying your heating and electricity bill?: No Do you have trouble taking care of your child, family member or friend?: No Do you have trouble with day-to-day activities such as bathing, preparing meals, shopping, managing finances, etc.?: No Are you currently unemployed and looking for a job?: No Are you interested in more education?: No Please select the resources that you would like help with: None Currently or been in a relationship where the following occur: no concerns reported THRIVE Score: 0 AUDIT C Alcohol Use Questionnaire (AUDIT-C) 1. How often do you have a drink containing alcohol?: Never Total Score: 0 LANRE-7 AMB Questionnaire LANRE-7 Date LANRE - 7 assessed: 09/12/23 Feeling nervous, anxious, or on edge: 1 = Several days Not being able to stop or control worryin = Not at all Worrying too much about different things: 0 = Not at all Trouble relaxin = Several days Being so restless that it is hard to sit still: 1 = Several days Becoming easily annoyed or irritable: 2 = More than half the days Feeling afraid as if something awful might happen: 0 = Not at all Total LANRE-7 score (0-4 normal; 5-9 mild; 10-14 moderate; 15-21 severe): 5 Source: Developed by Drs. Narendra Little, Jacquelin Castle, Nick Pacheco and colleagues, with an educational merly from [employer]. LANRE-7 Assessment Billing LANRE-7 Assessment Tool: LANRE-7 Assessment 51050 Review of Systems Const All systems reviewed & are unremarkable except as noted in HPI and below Eyes Reports no additional complaints, Denies change in vision and Denies other visual disturbances Card Denies chest pain at rest, Denies chest pain with activity, Denies edema, Denies irregular heart rhythm, Denies claudication, Denies dyspnea, Denies dyspnea on exertion, Denies orthopnea, Denies paroxysmal nocturnal dyspnea and Denies slow heart rate Resp Denies cough, Denies dyspnea and Denies dyspnea on exertion GI Denies abdominal pain, Denies change in bowel habits, Denies excessive flatus, Denies nausea and Denies vomiting Denies urinary hesitancy, Denies urinary incontinence and Denies urinary urgency Musc Denies abnormal gait, Denies atrophy, Denies deformity and Denies limited range of motion Skin/Breast Denies bleeding lesions, Denies changing lesions and Denies rash Neuro Denies abnormal gait, Denies behavioral changes and Denies lack of coordination Psych Denies behavioral changes Physical exam (Primary Care) Vital Signs: Last Vital Signs BP 138/80 09/12/23 13:48 BMI result Body Mass Index 28.3 Tobacco/Smoking Status: Tobacco use Status Tobacco use date assessed 09/12/23 09/12/23 13:11 Patient Tobacco Use Status Former Tobacco user 09/12/23 13:06 Tobacco use type 10/08/22 10:10 e-Cigarette/Vaping Use Never Used 09/12/23 13:06 PHQ-9: PHQ-9 Score PHQ-9: Total score 5 09/12/23 13:50 Depression Screening Interpretation: Positive Depression Screening Follow-up: Existing condition Thrive Assessment: Date of Thrive Assessment Date Thrive assessed 09/12/23 09/12/23 13:11 Currently or been in a relationship where the following occur: no concerns reported Const Limitations: ambulation with walker Eyes General: appearance normal, both eyes and all related structures Eyelids: Yes eyelids normal Conjunctivae: conjunctivae normal Neck Neck: Yes normal visual inspection and Yes supple Resp Effort & Inspection: normal respiratory effort Auscultation: clear to auscultation bilaterally Cardio Jugular venous distension: no JVD Rate: regular rate Rhythm: regular rhythm Heart sounds: S1 normal heart sound present and S2 normal heart sound present Extrem General: Yes full ROM Psych Appearance: grossly normal Assessment and Plan Assessment & Plan (1) Dyslipidemia: Code(s): E78.5 - Hyperlipidemia, unspecified Plan: Continue statins. (2) Hypovitaminosis D: Code(s): E55.9 - Vitamin D deficiency, unspecified Plan: Continue vitamin-D supplements. (3) Essential hypertension: Code(s): I10 - Essential (primary) hypertension Plan: Continue metoprolol. (4) Asthma: Comment: VERY MILD, INTERMITTENT BRONCHIAL ASTHMA. IT HAS REMAINED QUIET. TX : USE ALBUTEROL HFA 2 PUFFS Q 4-6 HOURS ONLY P.R.N. HE DOES NOT NEED TO SEE ME ON A REGULAR BASIS, CONTINUE TO FOLLOW-UP WITH PRIMARY CARE PHYSICIAN, AND I WILL BE GLAD TO SEE YOU, IF RESPIRATORY SYMPTOMS GET ANY WORSE. Code(s): J45.909 - Unspecified asthma, uncomplicated Plan: Use rescue inhaler as needed. Orders: Orders Vitamin D 25-OH Total 5 Months E55.9 - Vitamin D deficiency, unspecified Lipid Panel 5 Months E78.5 - Hyperlipidemia, unspecified Comprehensive Lilly. Panel Fast 5 Months E78.5 - Hyperlipidemia, unspecified Coding Level of Care Code Est Pt Level 4 (63938) Diagnoses Dyslipidemia E78.5 Hypovitaminosis D E55.9 Essential hypertension I10 Asthma J45.909 Additional Codes LANRE-7 Assessment Billing - LANRE-7 Assessment Tool: LANRE-7 Assessment 42408 ([id number]) Time Spent (min) 23
[2023-09-12 13:48] VITALS: BP 138/80
== END 2023-09-12 13:35 | disposition home or self-care (01) ==
PROVIDERS: PCP Internal Medicine; Visit Provider Internal Medicine
DX: E78.5 Hyperlipidemia, unspecified (principal); E55.9 Vitamin D deficiency, unspecified; I10 Essential (primary) hypertension; J45.909 Unspecified asthma, uncomplicated
CPT/HCPCS: 99214

== ENCOUNTER 2023-09-30 09:51 | Outpatient (AMB) | payer OTHER, SELFPAY ==
--- NOTE | 2023-09-30 09:57 | A.OFFVIS_ITS ---
Intake Vital Signs 09/30/23 10:03 Height 5 ft 2 in Weight 154 lb 5.177 oz BMI 28.2 BP 136/60 Blood Pressure Location Lt brachial Position Sitting Pulse 62 Intake Visit Reasons: 1 year follow up Intake Note: 1 year follow up w/ EKG Traditional Chinese Herbalist Required: No Accompanied by: Daughter Allergies aspirin Allergy (Mild, Verified 09/30/23 10:04) Rash meclizine Adverse Reaction (Severe, Verified 09/30/23 10:04) blurry vision Penicillins Adverse Reaction (Intermediate, Verified 09/30/23 10:04) rash and redness Medication List - Last Reconciled 09/30/23 by Kash Dunbar MD acetaminophen 500 mg PO Q6H PRN albuterol sulfate 90 mcg/actuation 2 puffs inhalation Q4-6H PRN 30 days blood pressure test kit-large As directed cholecalciferol (vitamin D3) 25 mcg PO DAILY clopidogrel 75 mg PO DAILY 90 days metoprolol tartrate 50 mg PO BID nitroglycerin 0.4 mg sublingual Q5M rosuvastatin 40 mg PO DAILY HPI HPI Comments History of Present Illness Details Sen returns for follow-up regarding coronary disease and coronary artery bypass surgery. To recall, he underwent coronary bypass surgery in 2006. Since last seen, no specific cardiac complaints. No angina or shortness of breath or in fact anything cardiac sounding. He states that sometimes he forgets to take his medications and then blood pressures go into the 150s but no higher. Otherwise, no symptoms per se. [facility] Medical History Asthma Wheezing Hypovitaminosis D Right knee pain Left knee pain Left ankle pain Former smoker Other and unspecified hyperlipidemia Essential hypertension Atherosclerotic cardiovascular disease Surgical History History of ankle surgery Status post aorto-coronary artery bypass graft History of quadruple bypass History of open reduction and internal fixation (ORIF) procedure Family History Father CVD (cardiovascular disease) Stroke Mother CVD (cardiovascular disease) Hypertension Hyperlipidemia Social History Housing: Apartment Alcohol intake: never Patient Tobacco Use Status: Former Tobacco user e-Cigarette/Vaping Use: Never Used Second Hand Smoke Exposure: No service: No Current occupational status: disabled Cognitive needs: Yes Hearing needs: No Vision needs: No Review of Systems Const Denies weakness ENT Denies dizziness Card Denies chest pain, Denies chest pain with activity, Denies syncope, Denies rapid heart rate, Denies pedal edema, Denies edema, Denies leg edema, Denies lightheadedness, Denies palpitations, Denies dyspnea, Denies dyspnea on exertion and Denies orthopnea Resp Denies cough, Denies dyspnea and Denies dyspnea on exertion GI Denies hematochezia and Denies change in stool character Musc Denies abnormal gait, Denies muscle cramps, Denies muscle weakness, Denies numbness, Denies radiating pain into limb and Denies tingling Neuro Denies abnormal gait, Denies dizziness, Denies syncope, Denies numbness, Denies tingling and Denies weakness Endo Denies palpitations Physical Exam Vital Signs: Last Vital Signs Pulse 62 09/30/23 10:03 BP 136/60 09/30/23 10:03 BMI result Body Mass Index 28.2 Const General: comfortable and no acute distress Orientation/consciousness: patient oriented x3 HEENT Other: Unremarkable Head: Yes normal to inspection Neck Neck: Yes normal visual inspection Chest Chest palpation & inspection: normal inspection of the chest Resp Auscultation: clear to auscultation bilaterally Cardio Palpation: normal PMI Heart sounds: S1 normal heart sound present, S2 normal heart sound present, no gallops, no murmurs and no rubs GI Palpation (GI): Soft to palpation Back/Spine/Pelvis Other: unremarkable Skin General skin exam: no rashes or lesions noted Neuro General: patient oriented x3 Extrem General: Yes normal to inspection Psych Mental Status: mental status grossly normal Office Procedures EKG Details: EKG with sinus rhythm at 62/Min; minimal criteria for LVH; no significant ST-T changes and otherwise unremarkable. [place]. [id number], Complete Assessment & Plan Assessment & Plan (1) Atherosclerotic cardiovascular disease: Code(s): I25.10 - Atherosclerotic heart disease of hopi coronary artery without angina pectoris Plan: Myocardial perfusion imaging from 2019 shows moderate size, mild intensity, basal inferior and inferolateral ischemia in the RCA/circumflex territory. In a prior stress test from 2011, some thinning of the inferior wall described. In 2007, again described to have inferior wall ischemia. In 2007, moderate ischemia along the anteroapical/inferolateral wall. Overall, findings are chronic. Echocardiogram 2019-LVEF 60-65%. Mild tricuspid regurgitation. Otherwise unremarkable. Clinically, he has got absolutely no angina. Hence just continue medications. He used to be on aspirin but apparently had some rash and then he has been switched to Plavix. Continue beta-blockers. (2) Essential hypertension: Code(s): I10 - Essential (primary) hypertension Plan: He states sometimes he forgets to take medications at home and blood pressure can go up into 150s but no higher. Discussed in detail about compliance and the importance of not missing doses. (3) Other and unspecified hyperlipidemia: Code(s): E78.5 - Hyperlipidemia, unspecified Plan: Stable on Crestor. Most recently, LDL 64 mg/dL. Plan Discussed with daughter who came for appointment. Coding Level of Care Code Est Pt Level 4 (31489) Diagnoses Atherosclerotic cardiovascular disease I25.10 Essential hypertension I10 Other and unspecified hyperlipidemia E78.5 CPT Codes EKG - CPT: [id number], Complete ([id number])
[2023-09-30 10:03] VITALS: BP 136/60; PULSE 62; BMI 28.2
== END 2023-09-30 10:23 | disposition home or self-care (01) ==
PROVIDERS: Visit Provider Internal Medicine
DX: I25.10 Atherosclerotic heart disease of native coronary artery without angina pectoris (principal); I10 Essential (primary) hypertension; E78.5 Hyperlipidemia, unspecified
CPT/HCPCS: 93010; 99214

== ENCOUNTER → 2023-09-30 09:51 | Outpatient (BNVA) | payer OTHER, SELFPAY | PROVIDERS: Visit Provider Internal Medicine | DX: I25.10 Atherosclerotic heart disease of native coronary artery without angina pectoris (principal); I10 Essential (primary) hypertension; E78.5 Hyperlipidemia, unspecified | CPT/HCPCS: 93005; 99212 ==

== ENCOUNTER 2024-02-10 09:29 | Outpatient (REF) | payer OTHER, SELFPAY ==
[2024-02-10 11:07] LABS: Alanine Aminotransferase 37 U/L (0-40); Albumin Level 4.2 g/dL (3.5-5.0); Alkaline Phosphatase 89 U/L (39-117); Anion Gap 11 (12-20); Aspartate Amino Transferase 36 U/L (5-37); Bilirubin Total 0.6 mg/dL (0.0-1.0); Blood Urea Nitrogen 15 mg/dL (9-16); Calcium 9.6 mg/dL (8.4-10.2); Carbon Dioxide 27 mmol/L (22-29); Chloride 107 mmol/L (96-108); Cholesterol 106 mg/dL (<200); Estimated Glomerular Filt Rate > 60; Glucose Fasting 97 mg/dL (60-99); HDL Cholesterol 33 mg/dL (>40); LDL Cholesterol Calculated 52 mg/dL (<100); Potassium 4.2 mmol/L (3.3-5.1); Sodium 141 mmol/L (135-145); Total Protein 7.6 g/dL (6.5-8.0); Triglycerides 108 mg/dL (<150)
[2024-02-10 11:26] LABS: Vitamin D 25-OH Total 30.3 ng/mL (>30)
== END 2024-02-10 09:30 | disposition home or self-care (01) ==
LOC: HO.LAB 09:29
PROVIDERS: PCP Internal Medicine; Visit Provider Internal Medicine
DX: E78.5 Hyperlipidemia, unspecified (principal); E55.9 Vitamin D deficiency, unspecified
CPT/HCPCS: 36415; 80053; 80061; 82306

== ENCOUNTER 2024-02-18 10:16 | Outpatient (AMB) | payer OTHER, SELFPAY ==
[2024-02-18 10:20] VITALS: BP 136/72; BMI 27.2
--- NOTE | 2024-02-18 10:20 | A.OFFPC_ITS ---
Vital Signs 02/18/24 10:20 Height 5 ft 2 in Weight 149 lb BMI 27.2 BP 136/72 Blood Pressure Location Lt brachial Position Sitting Intake Visit Reasons: Annual Exam Intake Note: Patient here for an annual physical exam Management Architect Required: No Accompanied by: MINE SAFETY ENGINEER/ Granddaughter Allergies aspirin Allergy (Mild, Verified 02/18/24 10:30) Rash meclizine Adverse Reaction (Severe, Verified 02/18/24 10:30) blurry vision Penicillins Adverse Reaction (Intermediate, Verified 02/18/24 10:30) rash and redness Medication List - Last Reconciled 02/18/24 by Tiffany Jesus MD acetaminophen 500 mg PO Q6H PRN albuterol sulfate 90 mcg/actuation 2 puffs inhalation Q4-6H PRN 30 days blood pressure test kit-large As directed cholecalciferol (vitamin D3) 25 mcg PO DAILY clopidogrel 75 mg PO DAILY 90 days metoprolol tartrate 50 mg PO BID nitroglycerin 0.4 mg sublingual Q5M rosuvastatin 40 mg PO DAILY Tobacco use date assessed: 09/12/23 Fall risk assessment: No Falls in past year Last assessed Fall Risk: 02/18/24 Dental Screening Dental Screen Date: 09/12/23 HPI HPI Comments History of Present Illness Details This is a 78-year-old male that comes accompanied by CUTTER AND PRESSER for his physical exam. Denies any chest pain or shortness on breath. Walks with a walker for gait stability. No acute complaints. [facility] Medical History Asthma Wheezing Hypovitaminosis D Right knee pain Left knee pain Left ankle pain Former smoker Other and unspecified hyperlipidemia Essential hypertension Atherosclerotic cardiovascular disease Surgical History History of ankle surgery Status post aorto-coronary artery bypass graft History of quadruple bypass History of open reduction and internal fixation (ORIF) procedure Family History Father CVD (cardiovascular disease) Stroke Mother CVD (cardiovascular disease) Hypertension Hyperlipidemia Social History Housing: Apartment Alcohol intake: never Patient Tobacco Use Status: Former Tobacco user e-Cigarette/Vaping Use: Never Used Second Hand Smoke Exposure: No service: No Current occupational status: disabled Cognitive needs: Yes Hearing needs: No Vision needs: No Questionnaire Thrive Questionnaire Date Thrive assessed: 09/12/23 LANRE-7 AMB Questionnaire LANRE-7 Date LANRE - 7 assessed: 09/12/23 Source: Developed by Drs. Narendra Little, Jacquelin Castle, Nick Pacheco and colleagues, with an educational merly from [employer]. Review of Systems Const All systems reviewed & are unremarkable except as noted in HPI and below Card Denies chest pain at rest, Denies chest pain with activity, Denies edema, Denies irregular heart rhythm, Denies claudication, Denies dyspnea, Denies dyspnea on exertion, Denies orthopnea, Denies paroxysmal nocturnal dyspnea and Denies slow heart rate Resp Denies cough, Denies dyspnea and Denies dyspnea on exertion GI Denies abdominal pain, Denies change in bowel habits, Denies excessive flatus, Denies nausea and Denies vomiting Physical exam (Primary Care) Vital Signs: Last Vital Signs BP 136/72 02/18/24 10:20 BMI result Body Mass Index 27.2 Tobacco/Smoking Status: Tobacco use Status Tobacco use date assessed 09/12/23 02/18/24 10:26 Patient Tobacco Use Status Former Tobacco user 02/18/24 10:26 Tobacco use type 10/08/22 10:10 e-Cigarette/Vaping Use Never Used 02/18/24 10:26 Thrive Assessment: Date of Thrive Assessment Date Thrive assessed 09/12/23 02/18/24 10:26 Const Limitations: ambulation with walker HENMT Head: Yes normal to inspection, Yes normocephalic and Yes atraumatic Ears: external ears normal Eyes General: appearance normal, both eyes and all related structures Eyelids: Yes eyelids normal Conjunctivae: conjunctivae normal Neck Neck: Yes normal visual inspection and Yes supple Resp Effort & Inspection: normal respiratory effort Auscultation: clear to auscultation bilaterally Cardio Jugular venous distension: no JVD Rate: regular rate Rhythm: regular rhythm Heart sounds: S1 normal heart sound present and S2 normal heart sound present GI Inspection: Yes normal to inspection Palpation (GI): Soft to palpation and nontender Auscultation: normal bowel sounds Skin General skin exam: no rashes or lesions noted Neuro General: no focal motor deficits Extrem General: Yes full ROM Right lower extremity: ankle (electronic bracelet) Psych Appearance: grossly normal Assessment and Plan Assessment & Plan (1) Physical exam: Code(s): Z00.00 - Encounter for general adult medical examination without abnormal findings Plan: Repeat in a year. Coding Level of Care Code Est Pt Prev Care >65y(25285) Diagnoses Physical exam Z00.00 Time Spent (min) 30
== END 2024-02-18 10:45 | disposition home or self-care (01) ==
PROVIDERS: PCP Internal Medicine; Visit Provider Internal Medicine
DX: Z00.00 Encounter for general adult medical examination without abnormal findings (principal)
CPT/HCPCS: 99397

== ENCOUNTER 2024-12-01 | Outpatient (REF) | payer OTHER, SELFPAY ==
[2024-12-01 14:10] LABS: Hematocrit 44.3 % (42.0-52.0); Hemoglobin 14.9 g/dl (14.0-18.0); Mean Corpuscular HGB Conc 33.6 g/dl (31.0-36.0); Mean Corpuscular Hemoglobin 30.7 pg (27.0-33.0); Mean Corpuscular Volume 91.2 fL (80.0-98.0); Mean Platelet Volume 10.9 fL (9.4-12.4); Platelet Count 181 X10*3/uL (160-400); Red Blood Count 4.86 X10*6/uL (4.60-5.80); Red Cell Distribution Width 13.7 % (11.0-16.0); White Blood Count 6.3 X10*3/uL (4.8-10.8)
[2024-12-01 18:15] LABS: Alanine Aminotransferase 39 U/L (0-40); Albumin Level 4.1 g/dL (3.5-5.0); Alkaline Phosphatase 99 U/L (39-117); Anion Gap 10 (12-20); Aspartate Amino Transferase 44 U/L (5-37); Bilirubin Total 0.5 mg/dL (0.0-1.0); Blood Urea Nitrogen 14 mg/dL (9-16); Carbon Dioxide 29 mmol/L (22-29); Chloride 104 mmol/L (96-108); Estimated Glomerular Filt Rate > 60; Glucose Random 106 mg/dL (60-115); Sodium 139 mmol/L (135-145); Total Protein 7.8 g/dL (6.5-8.0)
== END 2024-12-01 00:01 | disposition home or self-care (01) ==
LOC: HO.LAB
PROVIDERS: PCP Internal Medicine; Visit Provider Internal Medicine
DX: I25.10 Atherosclerotic heart disease of native coronary artery without angina pectoris (principal); I10 Essential (primary) hypertension
CPT/HCPCS: 36415; 80053; 85027

== ENCOUNTER 2024-12-01 12:34 | Outpatient (AMB) | payer OTHER, SELFPAY ==
[2024-12-01 12:46] VITALS: BP 130/68; PULSE 70; BMI 27.0
--- NOTE | 2024-12-01 12:46 | A.OFFVIS_ITS ---
Vital Signs 12/01/24 12:46 Height 5 ft 2 in Weight 147 lb 11.355 oz BMI 27.0 BP 130/68 Blood Pressure Location Lt brachial Position Sitting Pulse 70 Pulse Source Monitor Intake Visit Reasons: 1 yr f/up rs from 09/29 Student Advisor Required: Yes Student Advisor Name: DOMO [id number] Allergies aspirin Allergy (Mild, Verified 02/18/24 10:30) Rash meclizine Adverse Reaction (Severe, Verified 02/18/24 10:30) blurry vision Penicillins Adverse Reaction (Intermediate, Verified 02/18/24 10:30) rash and redness Medication List - Last Reconciled 12/01/24 by Kash Dunbar MD acetaminophen 500 mg PO Q6H PRN albuterol sulfate 90 mcg/actuation 2 puffs inhalation Q4-6H PRN 30 days aspirin (Adult Aspirin Regimen) 81 mg PO DAILY blood pressure test kit-large As directed cholecalciferol (vitamin D3) 25 mcg PO DAILY metoprolol tartrate 50 mg PO BID nitroglycerin 0.4 mg sublingual Q5M rosuvastatin 40 mg PO DAILY HPI Comments Details: Sen returns for follow-up regarding coronary disease and coronary artery bypass surgery. To recall, he underwent coronary bypass surgery in 2006. According to him, he does not have any cardiac symptoms like angina or shortness of breath or in fact anything cardiac related. Otherwise, there was some question of allergy to aspirin and he was taking Plavix for a while. Then recently he noted blood in his stool and after that, he stopped the Plavix and went back on aspirin. He states the bleeding has now resolved completely. He has not seen any specialist for that. He uses a walker to aid in walking due to unsteadiness. Otherwise, feels fine. [facility] Medical History Asthma Wheezing Hypovitaminosis D Right knee pain Left knee pain Left ankle pain Former smoker Other and unspecified hyperlipidemia Essential hypertension Atherosclerotic cardiovascular disease Surgical History History of ankle surgery Status post aorto-coronary artery bypass graft History of quadruple bypass History of open reduction and internal fixation (ORIF) procedure Family History Father CVD (cardiovascular disease) Stroke Mother CVD (cardiovascular disease) Hypertension Hyperlipidemia Social History Housing: Apartment Alcohol intake: never Patient Tobacco Use Status: Former Tobacco user e-Cigarette/Vaping Use: Never Used Second Hand Smoke Exposure: No service: No Current occupational status: disabled Cognitive needs: Yes Hearing needs: No Vision needs: No Review of Systems Const Denies weakness ENT Denies dizziness Card Denies chest pain, Denies chest pain with activity, Denies syncope, Denies rapid heart rate, Denies pedal edema, Denies edema, Denies leg edema, Denies lightheadedness, Denies palpitations, Denies dyspnea, Denies dyspnea on exertion and Denies orthopnea Resp Denies cough, Denies dyspnea and Denies dyspnea on exertion GI Denies hematochezia and Denies change in stool character Musc Denies abnormal gait, Denies muscle cramps, Denies muscle weakness, Denies numbness, Denies radiating pain into limb and Denies tingling Neuro Denies abnormal gait, Denies dizziness, Denies syncope, Denies numbness, Denies tingling and Denies weakness Endo Denies palpitations Physical Exam Vital Signs: Last Vital Signs Pulse 70 12/01/24 12:46 BP 130/68 12/01/24 12:46 BMI result Body Mass Index 27.0 Const General: comfortable and no acute distress Orientation/consciousness: patient oriented x3 HEENT Other: Unremarkable Head: Yes normal to inspection Neck Neck: Yes normal visual inspection Chest Chest palpation & inspection: normal inspection of the chest Resp Auscultation: clear to auscultation bilaterally Cardio Palpation: normal PMI Heart sounds: S1 normal heart sound present, S2 normal heart sound present, no gallops, no murmurs and no rubs GI Palpation (GI): Soft to palpation Back/Spine/Pelvis Other: unremarkable Skin General skin exam: no rashes or lesions noted Neuro General: patient oriented x3 Extrem General: Yes normal to inspection Psych Mental Status: mental status grossly normal Office Procedures EKG Details: EKG with underlying sinus rhythm at 70/Min; supraventricular ectopy; incomplete right bundle-branch block; leftward axis; voltage criteria for LVH; cannot exclude old inferior infarct; [place] [id number]-[id number], Complete Assessment & Plan Assessment & Plan (1) Atherosclerotic cardiovascular disease: Code(s): I25.10 - Atherosclerotic heart disease of [place] coronary artery without angina pectoris Category: Medical Plan: Myocardial perfusion imaging from 2020 shows moderate size, mild intensity, basal inferior and inferolateral ischemia in the RCA/circumflex territory. In a prior stress test from 2011, some thinning of the inferior wall described. In 2007, again described to have inferior wall ischemia. In 2006, moderate ischemia along the anteroapical/inferolateral wall. Overall, findings are chronic. Echocardiogram 2020-LVEF 60-65%. Mild tricuspid regurgitation. Otherwise unremarkable. Clinically, he has got absolutely no angina. Hence just continue medications. With regard to antiplatelet therapy, he was on aspirin and had some question of rash then switched over to Plavix. Now patient has stopped the Plavix and went back on aspirin himself and states he feels well. (2) Essential hypertension: Code(s): I10 - Essential (primary) hypertension Category: Medical Plan: Stable. No changes. (3) Other and unspecified hyperlipidemia: Code(s): E78.5 - Hyperlipidemia, unspecified Category: Medical Plan: Stable on Crestor. Most recently, LDL 64 mg/dL. (4) Rectal bleeding: Code(s): K62.5 - Hemorrhage of anus and rectum Category: Medical Plan: Per patient, rectal bleeding while he was taking Plavix. Uncertain etiology. We will check hemoglobin and other labs. Refer to general surgery for further evaluation. Plan Discussion Notes I discussed with the patient the importance of a gastrointestinal evaluation due to the prior bleeding incident as it could be indicative of a more severe condition. I also recommended obtaining blood work to ensure no lingering anemia from the prior bleeding episode. The patient was scheduled for follow-up in one year with the recommendation of having a referral to appropriate specialist for further assessment. Also discussed with family who came for appointment. Patient was informed and verbally consented to the use of an ambient scribe for clinic note documentation during this visit. Orders: Orders Complete Blood Count no Diff Today I25.10 - Atherosclerotic heart disease of [place] coronary artery without angina pectoris Comprehensive Met. Panel Today I25.10 - Atherosclerotic heart disease of [place] coronary artery without angina pectoris Referrals General Surgery Referral K62.5 - Hemorrhage of anus and rectum Patient Instructions: - continue her current medications without changes. - You will be referred to a surgical lead for a check-up to understand the cause of the bleeding from before. - Go for the blood test to check your hemoglobin level. - Use your walker when walking to help with balance. - Follow up with me next year. - Go for more blood tests today as ordered. - If you experience any new bleeding, call the doctor right away. Coding Level of Care Code Est Pt Level 4 (97881) Complex EM visit Add On G2211 Diagnoses Atherosclerotic cardiovascular disease I25.10 Essential hypertension I10 Other and unspecified hyperlipidemia E78.5 Rectal bleeding K62.5 CPT Codes EKG - CPT: 57302-[id number], Complete ([id number])
== END 2024-12-01 13:13 | disposition home or self-care (01) ==
LOC: HO.HCS 12:35
PROVIDERS: PCP Internal Medicine; Visit Provider Internal Medicine
DX: I25.10 Atherosclerotic heart disease of native coronary artery without angina pectoris (principal); I10 Essential (primary) hypertension; E78.5 Hyperlipidemia, unspecified; K62.5 Hemorrhage of anus and rectum
CPT/HCPCS: 93010; 99214; G2211

== ENCOUNTER → 2024-12-01 12:34 | Outpatient (BNVA) | payer OTHER, SELFPAY | PROVIDERS: PCP Internal Medicine; Visit Provider Internal Medicine | DX: I25.10 Atherosclerotic heart disease of native coronary artery without angina pectoris (principal); I10 Essential (primary) hypertension; E78.5 Hyperlipidemia, unspecified; K62.5 Hemorrhage of anus and rectum | CPT/HCPCS: 93005; 99212 ==

== ENCOUNTER 2025-02-22 09:52 | Outpatient (AMB) | payer OTHER, SELFPAY ==
[2025-02-22 10:03] VITALS: BP 118/72; BMI 26.8
--- NOTE | 2025-02-22 10:03 | MHC.PC.OV ---
Vital Signs 02/22/25 10:03 Height 5 ft 2 in Weight 146 lb 9.718 oz BMI 26.8 BP 118/72 Blood Pressure Location Lt brachial Position Sitting Intake Visit Reasons: PE Intake Note: Patient here for a physical exam Director Sterile Processing Required: No Accompanied by: Daughter Allergies aspirin Allergy (Mild, Verified 02/22/25 10:21) Rash meclizine Adverse Reaction (Severe, Verified 02/22/25 10:21) blurry vision Penicillins Adverse Reaction (Intermediate, Verified 02/22/25 10:21) rash and redness Medication List - Last Reconciled 02/22/25 by Tiffany Jesus MD acetaminophen 500 mg PO Q6H PRN albuterol sulfate 90 mcg/actuation 2 puffs inhalation Q4-6H PRN 30 days aspirin (Adult Aspirin Regimen) 81 mg PO DAILY blood pressure test kit-large As directed cholecalciferol (vitamin D3) 25 mcg PO DAILY metoprolol tartrate 50 mg PO BID nitroglycerin 0.4 mg sublingual Q5M rosuvastatin 40 mg PO DAILY Tobacco use date assessed: 02/22/25 Fall risk assessment: No Falls in past year Last assessed Fall Risk: 02/22/25 Dental Screening Dental Screen Date: 02/22/25 Did you have a dental visit in the last 12 months?: No Did you have a dental problem in the last 6 months where you did not have access to dental care?: No Was dental information given to patient?: Patient has dentist HPI HPI Comments History of Present Illness Details The patient is a 79-year-old male presenting for an annual physical examination. He has a history of coronary artery disease and underwent coronary artery bypass graft surgery in 2006. His father had a history of cardiovascular disease and suffered a stroke. The patient has an allergy to penicillin, which causes a rash. He is currently taking metoprolol twice daily for his heart condition and uses nitroglycerin as needed for angina. He also takes aspirin for cardiovascular prevention and vitamin D supplementation. He has a previous history of smoking but does not consume alcohol. The patient denies any symptoms of depression. [facility] Medical History Asthma Wheezing Hypovitaminosis D Right knee pain Left knee pain Left ankle pain Former smoker Other and unspecified hyperlipidemia Essential hypertension Atherosclerotic cardiovascular disease Surgical History History of ankle surgery Status post aorto-coronary artery bypass graft History of quadruple bypass History of open reduction and internal fixation (ORIF) procedure Family History Father CVD (cardiovascular disease) Stroke Mother CVD (cardiovascular disease) Hypertension Hyperlipidemia Social History Housing: Apartment Alcohol intake: never Patient Tobacco Use Status: Former Tobacco user e-Cigarette/Vaping Use: Never Used Second Hand Smoke Exposure: No service: No Current occupational status: disabled Cognitive needs: Yes Hearing needs: No Vision needs: No Questionnaire PHQ-9 Over the last 2 weeks, how often have you been bothered by any of the following problems? 1. Little interest or pleasure in doing things: not at all 2. Feeling down, depressed, or hopeless: not at all 3. Trouble falling or staying asleep, or sleeping too much: not at all 4. Feeling tired or having little energy: several days 5. Poor appetite or overeating: several days 6. Feeling bad about yourself - or that you are a failure or have let yourself or your family down: not at all 7. Trouble concentrating on things, such as reading the newspaper or watching television: not at all 8. Moving or speaking so slowly that other people could have noticed. Or the opposite - being so fidgety or restless that you have been moving around a lot more than usual: several days 9. Thoughts that you would be better off or of hurting yourself in some way: not at all Total score: 3 Depression Screening Interpretation: Negative Depression Screening Done: Yes 68250 - PHQ-9 Billing: Yes Source: Developed by Drs. Narendra Little, Jacquelin Castle, Nick Pacheco and colleagues, with an educational merly from [employer]. Thrive Questionnaire Date Thrive assessed: 02/20/25 I am a: Patient What is your living situation today?: I have a steady place to live Within the past 12 months, did the food you bought not last and you didn't have the money to get more?: Never true Within the past 12 months, did you worry whether your food would run out before you got money to buy more?: Never true Do you have trouble paying for medicines?: Yes Do you have trouble getting transportation to medical appointments?: No Do you have trouble paying your heating and electricity bill?: No Do you have trouble taking care of your child, family member or friend?: No Do you have trouble with day-to-day activities such as bathing, preparing meals, shopping, managing finances, etc.?: Yes Are you currently unemployed and looking for a job?: No Are you interested in more education?: No Please select the resources that you would like help with: None Currently or been in a relationship where the following occur: No concerns reported THRIVE Score: 0 AUDIT C Alcohol Use Questionnaire (AUDIT-C) 1. How often do you have a drink containing alcohol?: Never Total Score: 0 Score Reviewed/Action Taken: No LANRE-7 AMB Questionnaire LANRE-7 Date LANRE - 7 assessed: 02/22/25 Feeling nervous, anxious, or on edge: 0 = Not at all Not being able to stop or control worryin = Not at all Worrying too much about different things: 0 = Not at all Trouble relaxin = Not at all Being so restless that it is hard to sit still: 2 = More than half the days Becoming easily annoyed or irritable: 0 = Not at all Feeling afraid as if something awful might happen: 0 = Not at all Total LANRE-7 score (0-4 normal; 5-9 mild; 10-14 moderate; 15-21 severe): 2 Source: Developed by Drs. Narendra Little, Jacquelin Castle, Nick Pacheco and colleagues, with an educational merly from [employer]. LANRE-7 Assessment Billing LANRE-7 Assessment Tool: LANRE-7 Assessment 30169 Review of Systems Const All systems reviewed & are unremarkable except as noted in HPI and below Card Denies chest pain at rest, Denies chest pain with activity, Denies edema, Denies irregular heart rhythm, Denies claudication, Denies dyspnea, Denies dyspnea on exertion, Denies orthopnea, Denies paroxysmal nocturnal dyspnea and Denies slow heart rate Resp Denies cough, Denies dyspnea and Denies dyspnea on exertion GI Denies abdominal pain, Denies change in bowel habits, Denies excessive flatus, Denies nausea and Denies vomiting Denies urinary hesitancy, Denies urinary incontinence and Denies urinary urgency Musc Denies abnormal gait, Denies atrophy, Denies deformity and Denies limited range of motion Skin/Breast Denies bleeding lesions, Denies changing lesions and Denies rash Neuro Denies abnormal gait, Denies behavioral changes and Denies lack of coordination Psych Denies behavioral changes Physical exam (Primary Care) Vital Signs: Last Vital Signs BP 118/72 02/22/25 10:03 BMI result Body Mass Index 26.8 Tobacco/Smoking Status: Tobacco use Status Tobacco use date assessed 02/22/25 02/22/25 10:11 Patient Tobacco Use Status Former Tobacco user 02/22/25 10:11 Tobacco use type 10/08/22 10:10 e-Cigarette/Vaping Use Never Used 02/22/25 10:11 PHQ-9: PHQ-9 Score PHQ-9: Total score 3 02/22/25 10:24 Depression Screening Interpretation: Negative Thrive Assessment: Date of Thrive Assessment Date Thrive assessed 02/20/25 02/22/25 10:11 Currently or been in a relationship where the following occur: No concerns reported Const Limitations: ambulation with walker HENMT Head: Yes normal to inspection, Yes normocephalic and Yes atraumatic Ears: external ears normal Eyes General: appearance normal, both eyes and all related structures Eyelids: Yes eyelids normal Conjunctivae: conjunctivae normal Neck Neck: Yes normal visual inspection and Yes supple Resp Effort & Inspection: normal respiratory effort Auscultation: clear to auscultation bilaterally Cardio Jugular venous distension: no JVD Rate: regular rate Rhythm: regular rhythm Heart sounds: S1 normal heart sound present and S2 normal heart sound present GI Inspection: Yes normal to inspection Palpation (GI): Soft to palpation and nontender Auscultation: normal bowel sounds Skin General skin exam: no rashes or lesions noted Neuro General: no focal motor deficits Extrem General: Yes full ROM Psych Appearance: grossly normal Coding Level of Care Code Est Pt Prev Care >65y(10161) Diagnoses Physical exam Z00.00 Additional Codes LANRE-7 Assessment Billing - LANRE-7 Assessment Tool: LANRE-7 Assessment 79104 ([id number]) PHQ-9 - 86424 - PHQ-9 Billing: Yes ([id number]) Time Spent (min) 30 Assessment & Plan Assessment & Plan (1) Physical exam: Code(s): Z00.00 - Encounter for general adult medical examination without abnormal findings Category: Medical Plan The patient will continue with his current medication regimen, including metoprolol and nitroglycerin as needed for angina management. He will maintain aspirin therapy for cardiovascular prevention and continue vitamin D supplementation. Voltaren gel has been recommended for pain management, to be applied at least once daily. No further colonoscopy is required due to the patient's age. Patient was informed and verbally consented to the use of an ambient scribe for clinic note documentation during this visit. Orders: Orders Lipid Panel Today E78.5 - Hyperlipidemia, unspecified Comprehensive [place]. Panel Fast Today Z00.00 - Encounter for general adult medical examination without abnormal findings Vitamin D 25-OH Total Today E55.9 - Vitamin D deficiency, unspecified
--- OUTSIDE RECORDS SUMMARY | 2025-02-22 10:52 | XMS_ITS | Clinical Summary ---
Author Organization [facility] Address [address] [place] [address] [place] [phone] Phone Care Team Providers Care Optics Technical Officer Name Role Phone Pcp, Unknown Primary Care Provider Unavailabl e Social History Tobacco Use Types Packs/Day Years Used Date Smoking Tobacco: Never Assessed Education Answer Date Recorded Are you interested in more education? Not on vasile e 11/24/2022 Are you concerned about learning? Not on file 11/24/2022 No 11/24/2022 No 11/24/2022 Digital Access Answer Date Recorded No 12/25/2022 No 12/25/2022 Reliable internet access at home? Not on file 12/25/2022 Device with a working camera? Not on file Sex and Gender Information Value Date Recorded Sex Assigned at Not on file Legal Sex Male 12:09 PM EDT Gender Identity Not on file Sexual Orientation Not on file Plan of Treatment Not on file Medical Devices Not on file Insurance [facility] MEDICARE REPLACEMENT SAM[place]EL BENJAMIN [id number] [place] [address] [place] [address] [place] [address] MEDICARE REPLACEMENT [facility] MEDICARE REPLACEMENT [facility] MEDICARE REPLACEMENT Care Teams Optics Technical Officer Relationship Specialty Start Date End Date Pcp, Unknown PCP - General 10/31/22 Additional Source Comments The information contained in this document represents components of the legal health record. It is not the complete legal health record.[facility]
== END 2025-02-22 10:33 | disposition home or self-care (01) ==
LOC: HO.HMCH 09:53
PROVIDERS: PCP Internal Medicine; Visit Provider Internal Medicine
DX: Z00.00 Encounter for general adult medical examination without abnormal findings (principal)

== ENCOUNTER → 2025-02-22 09:52 | Outpatient (BNVA) | payer OTHER, SELFPAY | PROVIDERS: PCP Internal Medicine; Visit Provider Internal Medicine | DX: Z00.00 Encounter for general adult medical examination without abnormal findings (principal); I25.10 Atherosclerotic heart disease of native coronary artery without angina pectoris; E78.5 Hyperlipidemia, unspecified; E55.9 Vitamin D deficiency, unspecified; Z87.891 Personal history of nicotine dependence | CPT/HCPCS: 96127; 99397 ==

== ENCOUNTER 2025-03-02 08:56 | Outpatient (REF) | payer OTHER, SELFPAY ==
--- OUTSIDE RECORDS SUMMARY | 2025-03-02 09:15 | XMS_ITS | Clinical Summary ---
Author Organization [facility] Address [address] [place] [address] [place] [phone] Phone Care Team Providers Care Slitting Machine Operator Name Role Phone Pcp, Unknown Primary Care [...] file Medical Devices Not on file Insurance [facility] MED[facility] REPLACEMENT SAMUEL BENJAMIN [id number] [place] [address] [place] [place] [address] [place] [place] [address] MEDICARE REPLACEMENT [facility] MEDICARE REPLACEMENT [facility] MEDICARE REPLACEMENT Care Teams Slitting Machine Operator Relationship Specialty Start Date End Date Pcp, Unknown PCP - General 10/31/22 Additional Source Comments The information contained in this document represents components of the legal health record. It is not the complete legal health record.[facility]
[2025-03-02 10:19] LABS: Alanine Aminotransferase 47 U/L (0-40); Albumin Level 4.4 g/dL (3.5-5.0); Alkaline Phosphatase 106 U/L (39-117); Anion Gap 9 (12-20); Aspartate Amino Transferase 56 U/L (5-37); Blood Urea Nitrogen 13 mg/dL (9-16); Calcium 9.2 mg/dL (8.4-10.2); Carbon Dioxide 30 mmol/L (22-29); Chloride 107 mmol/L (96-108); Cholesterol 119 mg/dL (<200); Estimated Glomerular Filt Rate > 60; HDL Cholesterol 36 mg/dL (>40); Potassium 4.0 mmol/L (3.3-5.1); Sodium 142 mmol/L (135-145); Total Protein 8.0 g/dL (6.5-8.0); Triglycerides 137 mg/dL (<150)
== END 2025-03-02 08:57 | disposition home or self-care (01) ==
LOC: HO.LAB 08:56
PROVIDERS: PCP Internal Medicine; Visit Provider Internal Medicine
DX: Z00.00 Encounter for general adult medical examination without abnormal findings (principal); E78.5 Hyperlipidemia, unspecified; E55.9 Vitamin D deficiency, unspecified
CPT/HCPCS: 36415; 80053; 80061; 82306